=== PATIENT | female | born 1955 | race Caucasian/White ===

== ENCOUNTER 2018-03-15 00:16 | Emergency (ER) | payer OTHER ==
[~2018-03-15] VITALS: Ht 162.6 cm; Wt 85.3 kg
[2018-03-15 00:21] VITALS: BP 154/91; Ht 162.6 cm; Wt 85.3 kg
== END 2018-03-15 00:46 | disposition home or self-care (01) ==
LOC: ED 00:16
DX: R19.7 Diarrhea, unspecified (principal); R10.84 Generalized abdominal pain; E11.9 Type 2 diabetes mellitus without complications; Z90.710 Acquired absence of both cervix and uterus